=== PATIENT | male | born 1940 | race Hispanic/Latino ===

== ENCOUNTER 2021-10-21 09:14 | Outpatient (CLI) | payer MEDICARE | END 2021-10-21 09:15 | disposition home or self-care (01) | LOC: TBSIIMAG 09:14 | PROVIDERS: ATTEND Physician Assistant | DX: S12.110A Anterior displaced Type II dens fracture, initial encounter for closed fracture (principal); S13.130A Subluxation of C2/C3 cervical vertebrae, initial encounter | CPT/HCPCS: 72050 ==

== ENCOUNTER 2021-12-15 14:36 | Outpatient (CLI) | payer OTHER | END 2021-12-15 14:37 | disposition home or self-care (01) | LOC: TBSIIMAG 14:36 | PROVIDERS: ATTEND Neurological Surgery | DX: S12.120A Other displaced dens fracture, initial encounter for closed fracture (principal) | CPT/HCPCS: 72050 ==